=== PATIENT | male | born 1965 | race Hispanic/Latino ===

== ENCOUNTER 2020-07-12 18:17 | Emergency (ER) | payer SELFPAY ==
--- NOTE | 2020-07-12 18:42 | RAD REPORT ---
EXAM DESCRIPTION: CT - Ct Stroke Brain Wo Cont - 07/12/2020 6:33 pm CLINICAL HISTORY: Slurred speech COMPARISON: none TECHNIQUE: Computed axial tomography of the head was obtained. All CT scans are performed using dose optimization technique as appropriate and may include automated exposure control or mA/KV adjustment according to patient size. FINDINGS: A 2 centimeter bleed is present within the right internal capsule extending into the basal ganglia. There is no shift of the midline structures. 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 No extra-axial fluid collection is noted. Fluid within the sinuses/ mastoids is not seen. Mucus retention cyst is present within the right maxi llary sinus IMPRESSION: 2 centimeter bleed within the right internal capsule extending into the right basal gang joel Roberts of the emergency room was notified at 630 p.m. July 12, 2020
[2020-07-12 18:44] LABS: Absolute Lymphocytes (CBC) 1.7 K/uL (0.7-4.9); Basophils % 0.4 % (0-1.3); Hematocrit 39.2 % (39.6-49.0); Lymphocytes % 18.5 % (15.3-44.8); MPV 8.9 fL (7.6-11.3); RBC Red Blood Cell Count 4.58 M/uL (4.33-5.43)
[2020-07-12 18:46] LABS: Protime INR 0.98
--- NOTE | 2020-07-12 18:52 | EDPHYS ---
Physician Documentation [facility] Name: Quincy Farrell Age: 55 yrs Sex: Male : 1965 Arrival Date: 07/12/2020 Time: 18:19 Bed 8 Private MD: ED Physician Jude Roberts HPI: 07/12 18:34 This 55 yrs old Male presents to ER via Unassigned with complaints of S/S of magdalena Possible Stroke. 18:34 The patient's problem is reported as altered mental status, confused, decreased magdalena responsiveness. Onset: The symptoms/episode began/occurred 1 hour(s) ago. Duration: The episode is continuous. Context: the episode(s) was witnessed, by family, mother. The symptoms are alleviated by nothing. The symptoms are aggravated by nothing. Associated signs and symptoms: Pertinent positives: confusion, gait abnormality, headache, lightheadedness, nausea. Severity of symptoms: At their worst the symptoms were moderate in the emergency department the symptoms are unchanged. The patient has not experienced similar symptoms in the past. Historical: - Allergies: 19:01 No Known Allergies; sv - PMHx: 19:01 Diabetes - NIDDM; Hypertension; sv - PSHx: 19:01 Appendectomy; sv - Immunization history:: Adult Immunizations unknown. - Social history:: Smoking status: Patient denies any tobacco usage or history of. - Family history:: not pertinent. ROS: 18:34 Constitutional: Negative for fever, chills, and weight loss, Eyes: Negative for injury, magdalena pain, redness, and discharge, ENT: Negative for injury, pain, and discharge, Neck: Negative for injury, pain, and swelling, Cardiovascular: Negative for chest pain, palpitations, and edema, Respiratory: Negative for shortness of breath, cough, wheezing, and pleuritic chest pain, Abdomen/GI: Negative for abdominal pain, nausea, vomiting, diarrhea, and constipation, Back: Negative for injury and pain, : Negative for injury, bleeding, discharge, and swelling, MS/Extremity: Negative for injury and deformity, Psych: Negative for depression, anxiety, suicide ideation, homicidal ideation, and hallucinations, Allergy/Immunology: Negative for hives, rash, and allergies, Endocrine: Negative for neck swelling, polydipsia, polyuria, polyphagia, and marked weight changes. 18:34 Skin: Positive for diaphoresis. Exam: 18:34 Radiologist reports: 2 cm right bg bleed magdalena 18:34 Cardiovascular: Regular rate and rhythm with a normal S1 and S2. No gallops, murmurs, or rubs. Normal PMI, no JVD. No pulse deficits. Respiratory: Lungs have equal breath sounds bilaterally, clear to auscultation and percussion. No rales, rhonchi or wheezes noted. No increased work of breathing, no retractions or nasal flaring. Abdomen/GI: Soft, non-tender, with normal bowel sounds. No distension or tympany. No guarding or rebound. No evidence of tenderness throughout. Back: No spinal tenderness. No costovertebral tenderness. Full range of motion. MS/ Extremity: Pulses equal, no cyanosis. Neurovascular intact. Full, normal range of motion. 18:34 Neuro: Orientation: unable to test, Mentation: slow to respond, confused, Memory: unable to test, Cranial nerves: facial droop noted on left, with forehead spared. Motor: strength is 5/5 in the right arm and right leg, Strength is 3/5 in the left arm and left leg, Sensation: light touch is decreased in the left arm and left leg, Gait: not tested. seizure activity, is not displayed by the patient. 19:02 ECG was reviewed by the Attending Physician. [facility] Vital Signs: 18:33 BP 230 / 137; Pulse 87; Resp 26; Temp 97.5; Pulse Ox 97% on R/A; sv 19:05 BP 198 / 114; Pulse 97; Resp 29; Pulse Ox 96% on R/A; sv 19:16 Weight 108.86 kg; Height 5 ft. 5 in. (165.10 cm); rr5 19:20 BP 172 / 82; Pulse 86; Resp 20; Pulse Ox 99% on R/A; mg2 19:30 BP 179 / 104; Pulse 90; Resp 20; Pulse Ox 98% on R/A; mg2 19:33 BP 150 / 110; Pulse 89; Resp 18; Pulse Ox 97% on R/A; mg2 19:16 Body Mass Index 39.94 (108.86 kg, 165.10 cm) rr5 NIH Stroke Scale Scores: 18:19 NIHSS Score: 5 ss MDM: 18:[address] [facility] 18:43 Differential diagnosis: CVA, TIA, paralysis, metabolic disorder. Data reviewed: vital magdalena signs, nurses notes, lab test result(s), EKG, radiologic studies, CT scan, plain films. Data interpreted: quality assurance monitor body: rate is 75 beats/min, rhythm is regular, Pulse oximetry: on room air is 75 %. Test interpretation: by ED physician or midlevel provider: ECG, plain radiologic studies. Counseling: I had a detailed discussion with the patient and/or guardian regarding: the historical points, exam findings, and any diagnostic results supporting the discharge/admit diagnosis, the presence of at least one elevated blood pressure reading (>120/80) during this emergency department visit, lab results, the need to transfer to another facility, for higher level of care, [facility] does not immediately have the required specialist. 07/12 18:24 Order name: Basic Metabolic Panel [facility] 07/12 18:24 Order name: CBC with Diff; Complete Time: 19:17 [facility] 07/12 18:24 Order name: LFT's; Complete Time: 19:17 [facility] 07/12 18:24 Order name: Magnesium; Complete Time: 19:17 [facility] 07/12 18:24 Order name: NT PRO-BNP; Complete Time: 19:17 [facility] 07/12 18:24 Order name: PT-INR; Complete Time: 19:17 [facility] 07/12 18:24 Order name: Troponin (emerg Dept Use Only); Complete Time: 19:17 [facility] 07/12 18:24 Order name: XRAY Chest (1 view); Complete Time: 19:17 [facility] 07/12 18:24 Order name: CT Stroke Brain w/o Contrast; Complete Time: 19:17 [facility] 07/12 18:24 Order name: Sed Rate; Complete Time: 19:17 [facility] 07/12 18:24 Order name: CRP; Complete Time: 19:17 [facility] 07/12 18:24 Order name: Basic Metabolic Panel; Complete Time: 19:17 [facility]MA 07/12 19:01 Order name: Glucose, Ancillary Testing; Complete Time: 19:17 [facility] 07/12 18:24 Order name: EKG; Complete Time: 18:25 [facility] 07/12 18:24 Order name: Cardiac monitoring; Complete Time: 18:53 [facility] 07/12 18:24 Order name: EKG - Nurse/Tech; Complete Time: 18:53 [facility] 07/12 18:24 Order name: IV Saline Lock; Complete Time: 18:53 [facility] 07/12 18:24 Order name: Labs collected and sent; Complete Time: 18:53 [facility] 07/12 18:24 Order name: O2 Per Protocol; Complete Time: 18:53 [facility] 07/12 18:24 Order name: O2 Sat Monitoring; Complete Time: 18:53 [facility] 07/12 19:19 Order name: IV Saline Lock - Large Bore; Complete Time: 19:23 [facility] EC: Rate is 78 beats/min. Rhythm is regular. QRS [place] is Normal. [place] interval is normal. QRS magdalena interval is normal. QT interval is normal. No Q waves. T waves are Normal. No ST changes noted. Clinical impression: NSR w/ Non-specific ST/T Changes and No evidence of ischemia. Interpreted by me. Reviewed by me. Administered Medications: 18:25 CANCELLED (Duplicate Order): NS 0.9% 1000 ml IV at 1 bolus Per protocol; 1000 mL bolus magdalena 18:40 Drug: niCARdipine (25mg/250ml) 5 mg/hr Route: IV; Rate: per protocol; Site: right hand; sv 19:43 Follow up: Response: No adverse reaction; IV Status: Infusion continued upon transfer mg2 19:17 Drug: Zofran (Ondansetron) 4 mg Route: IVP; Site: left hand; mg2 19:40 Follow up: Response: No adverse reaction mg2 19:17 Drug: Trandate 20 mg Route: IVP; Site: left hand; mg2 19:40 Follow up: Response: No adverse reaction; Blood pressure is lowered mg2 19:20 Drug: foLIC Acid 1 mg Route: IVPB; Site: left hand; mg2 19:40 Follow up: Response: No adverse reaction; IV Status: Completed infusion mg2 19:20 Drug: Pepcid 20 mg Route: IVP; Site: left hand; mg2 19:43 Follow up: Response: No adverse reaction mg2 19:35 Drug: Trandate 20 mg Route: IVP; Site: left hand; mg2 19:43 Follow up: Response: No adverse reaction; Blood pressure is lowered; Medication mg2 administered at discharge. Disposition: 07/12/20 18:51 Transfer ordered to Other Acute Care Facility. 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 - Reason for transfer: Higher level of care. - Accepting physician is to neuro ICU. - Condition is Serious. - Problem is new. - Symptoms are unchanged. Critical care time excluding procedures: 19:18 Critical care time: Bedside Care: 35 minutes, Consultation: 10 minutes, Family magdalena Intervention: 10 minutes. Total time: 55 minutes NIH Stroke Scale - NIH Stroke Score Date: 07/12/2020 Time: 18:19 Total Score = 5 1a. Level of Consciousness (LOC) - 0(Alert) 1b. Level of Consciousness (LOC) (Year \T\ Age) - 0(Both) 1c. LOC Commands (Open \T\ Closes Eyes/Insurance Examiner) - 0(Both) 2. Best Gaze (Lateral Gaze Paresis) - 0(Normal) 3. Visual Field Loss - 0(No visual loss) 4. Facial Palsy - 2(Partial paralysis) 5a. Left Arm: Motor (10-second hold) - 1(Drift) 5b. Right Arm: Motor (10-second hold) - 0(No drift) 6a. Left Leg: Motor (5-second hold - always test supine) - 1(Drift) 6b. Right Leg: Motor (5-second hold - always test supine) - 0(No drift) 7. Limb Ataxia (finger/nose \T\ heel/deutsch - test with eyes open) - 0(Absent) 8. Sensory Loss (pinprick arms/legs/face) - 0(Normal) 9. Best Language: Aphasia (description/naming/reading) - 0(No aphasia) 10. Dysarthria (speech clarity - read or repeat words) - 1(Mild to Moderate) 11. Extinction and Inattention (visual/tactile/auditory/spatial/personal) - 0(No abnormality) Initials: ss Signatures: Dispatcher [employer] Marian Solis RN RN sv Anderson, Corey, MD MD cha Smirch, Shelby, RN RN Jean Marie Antunze RN RN mg2 Corrections: (The following items were deleted from the chart) 18:25 18:24 NS 0.9% 1000 ml IV at 1 bolus Per protocol; 1000 mL bolus ordered. magdalena nichols 19:43 18:51 07/12/2020 18:51 Transfer ordered to Other Acute Care Facility. 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 Reason for transfer: Higher level of care. Accepting physician is to neuro ICU. Condition is Serious. Problem is new. Symptoms are unchanged. magdalena
--- NOTE | 2020-07-12 18:52 | ER ---
Nurse's Notes [facility] Name: Quincy Farrell Age: 55 yrs Sex: Male : 1965 Arrival Date: 07/12/2020 Time: 18:19 Bed 8 Private MD: Diagnosis: Aphasia following nontraumatic intracerebral hemorrhage-LEFT SIDE HEMIPARESIS, APHASIA;Essential (primary) hypertension-HYPERTENSIVE CRISIS Presentation: 07/12 18:19 Chief complaint: Sister reports that approximately 1 hour patient started to not feel ss well and then fell from a standing position. Upon arrival to ED, it is noted that patient has L sided facial droop and L sided weakness as well as difficulty speaking. Coronavirus screen: Client denies travel out of the [place] in the last 14 days. Ebola Screen: Patient denies exposure to infectious person. Patient denies travel to an Ebola-affected area in the 21 days before illness onset. An acute neurological deficit is present. Pre-hospital glucose is not applicable to this patient. Initial Sepsis Screen: Does the patient meet any 2 criteria? No. Patient's initial sepsis screen is negative. Does the patient have a suspected source of infection? No. Patient's initial sepsis screen is negative. 18:19 Method Of Arrival: Wheelchair ss 18:19 Acuity: KATHRYN 1 ss 18:51 Risk Assessment: Do you want to hurt yourself or someone else? Patient reports no sv desire to harm self or others. Onset of symptoms was July 12, 2020. Triage Assessment: 19:00 The onset of the patients symptoms was July 12, 2020 at 17:30. General: Appears in mg2 no apparent distress. Behavior is. General: Behavior is calm, cooperative. 19:30 Neuro: Reports headache. mg2 Stroke Activation: Symptom onset < 3 hours Physician: Stroke Attending; Name: ; Notified At: ; Arrived At: Physician: Chief Stroke Resident; Name: ; Notified At: ; Arrived At: Physician: Stroke Resident; Name: ; Notified At: ; Arrived At: Physician: ED Attending; Name: Dr Roberts; Notified At: 18:19; Arrived At: 18:45 Physician: ED Resident; Name: ; Notified At: ; Arrived At: Historical: - Allergies: 19:01 No Known Allergies; sv - PMHx: 19:01 Diabetes - NIDDM; Hypertension; sv - PSHx: 19:01 Appendectomy; sv - Immunization history:: Adult Immunizations unknown. - Social history:: Smoking status: Patient denies any tobacco usage or history of. - Family history:: not pertinent. Screenin:50 Abuse screen: Denies threats or abuse. Denies injuries from another. Nutritional sv screening: No deficits noted. Tuberculosis screening: No symptoms or risk factors identified. 19:21 Fall Risk IV access (20 points). mg2 Assessment: 18:16 General: Appears uncomfortable. Pain: Denies pain. Neuro: Level of Consciousness is ss awake, alert, obeys commands, Oriented to person, place, time, Weakness in left arm(s) leg(s) Speech is slurred, Facial droop on left, Pupils are PERRLA, Denies headache. Respiratory: Airway is patent Respiratory effort is even, unlabored. EENT: Nares are clear Oral mucosa is moist. Derm: port wine stain birthmark noted to upper body/ face and hands. 18:19 VAN Scoring: Arm Drift: Minor drift Visual Disturbance: No visual disturbance noted. ss Aphasia: No aphasia noted. Neglect: No neglect noted. 18:50 Patient has been NPO before screening. The patient is alert, and able to follow sv commands. The patient exhibits slurred or garbled speech. Provider notified of the indication for Speech Therapy consult. The patient is not exhibiting difficulty speaking. The patient does not exhibit difficulty understanding words. The patient is able to swallow own secretions with no drooling or need for suction. The patient did not tolerate one teaspoon of water. Drooling, immediate coughing, gurgling, or clearing of the throat was noted. Bedside swallow screening discontinued. Patient kept NPO until cleared by Speech Therapy or Physician. The patient failed the bedside swallow screening. The patient will be kept NPO until cleared by Speech Therapy or Physician. Provider notified of bedside swallow screening results: Jude Roberts MD. 18:50 The patient did not tolerate 90mL of water. Drooling, immediate coughing, gurgling, or mg2 clearing of the throat was noted. 19:11 T-PA (Activase) Screening: Contraindications: Intracranial hemorrhage and its risk ss factor and suspicion of subarachnoid bleed:. 19:18 Reassessment: [facility] staff "daily" informed. rr5 19:41 Reassessment: report given to [facility] staff. patient blood mg2 pressure controlled, provider spoke to the family and patient. patient awake and alert x 4. left side weakness still noticeable with slurred speech but family said he is better compared to when he came in. Vital Signs: 18:33 BP 230 / 137; Pulse 87; Resp 26; Temp 97.5; Pulse Ox 97% on R/A; sv 19:05 BP 198 / 114; Pulse 97; Resp 29; Pulse Ox 96% on R/A; sv 19:16 Weight 108.86 kg; Height 5 ft. 5 in. (165.10 cm); rr5 19:20 BP 172 / 82; Pulse 86; Resp 20; Pulse Ox 99% on R/A; mg2 19:30 BP 179 / 104; Pulse 90; Resp 20; Pulse Ox 98% on R/A; mg2 19:33 BP 150 / 110; Pulse 89; Resp 18; Pulse Ox 97% on R/A; mg2 19:16 Body Mass Index 39.94 (108.86 kg, 165.10 cm) rr5 NIH Stroke Scale Scores: 18:19 NIHSS Score: 5 ss ED Course: 18:19 Patient arrived in ED. rg4 18:19 Arm band placed on right wrist. ss 18:21 Jude Roberts MD is Attending Physician. magdalena 18:29 initiated a transfer with Sahra from the [facility] [place]. eb 18:30 Inserted saline lock: 20 gauge in right hand, using aseptic technique. ,using aseptic sv technique. done by Mignon CLARK Blood collected. 18:33 CT Stroke Brain w/o Contrast In Process Unspecified. EDMS 18:35 Missed attempt(s): 20 gauge in left hand. Bleeding controlled, band aid applied, sv catheter tip intact. 18:36 transfer initiated with Lavelljocelyn Hernandezmanuel from the [facility] [place]. eb 18:42 EKG done, by ED staff, reviewed by Jude Roberts MD. sv 18:59 XRAY Chest (1 view) In Process Unspecified. EDMS 19:00 Patient has correct armband on for positive identification. overcaster on. Pulse mg2 ox on. NIBP on. Door closed. Warm blanket given. 19:01 Report given to Lucretia CLARK and Aditya CLARK. sv 19:05 Inserted saline lock: 22 gauge in left hand, using aseptic technique. ,using aseptic ss technique. Inserted by AMBER Hwang. 19:07 Triage completed. ss 19:10 Jean Marie Antunez, AMBER is Primary Nurse. mg2 19:43 No provider procedures requiring assistance completed. Patient transferred, IV remains mg2 in place. Administered Medications: 18:25 CANCELLED (Duplicate Order): NS 0.9% 1000 ml IV at 1 bolus Per protocol; 1000 mL bolus magdalena 18:40 Drug: niCARdipine (25mg/250ml) 5 mg/hr Route: IV; Rate: per protocol; Site: right hand; sv 19:43 Follow up: Response: No adverse reaction; IV Status: Infusion continued upon transfer mg2 19:17 Drug: Zofran (Ondansetron) 4 mg Route: IVP; Site: left hand; mg2 19:40 Follow up: Response: No adverse reaction mg2 19:17 Drug: Trandate 20 mg Route: IVP; Site: left hand; mg2 19:40 Follow up: Response: No adverse reaction; Blood pressure is lowered mg2 19:20 Drug: foLIC Acid 1 mg Route: IVPB; Site: left hand; mg2 19:40 Follow up: Response: No adverse reaction; IV Status: Completed infusion mg2 19:20 Drug: Pepcid 20 mg Route: IVP; Site: left hand; mg2 19:43 Follow up: Response: No adverse reaction mg2 19:35 Drug: Trandate 20 mg Route: IVP; Site: left hand; mg2 19:43 Follow up: Response: No adverse reaction; Blood pressure is lowered; Medication mg2 administered at discharge. Outcome: 18:51 ER care complete, transfer ordered by . [facility] 19:43 Transferred by ground EMS to [facility], Transfer form completed. mg2 19:43 Condition: stable 19:43 Instructed on the need for transfer, Demonstrated understanding of instructions. 19:43 Patient left the ED. mg2 NIH Stroke Scale - NIH Stroke Score Date: 07/12/2020 Time: 18:19 Total Score = 5 1a. Level of Consciousness (LOC) - 0(Alert) 1b. Level of Consciousness (LOC) (Year \\T\\ Age) - 0(Both) 1c. LOC Commands (Open \\T\\ Closes Eyes/Family Practice Physician Assistant) - 0(Both) 2. Best Gaze (Lateral Gaze Paresis) - 0(Normal) 3. Visual Field Loss - 0(No visual loss) 4. Facial Palsy - 2(Partial paralysis) 5a. Left Arm: Motor (10-second hold) - 1(Drift) 5b. Right Arm: Motor (10-second hold) - 0(No drift) 6a. Left Leg: Motor (5-second hold - always test supine) - 1(Drift) 6b. Right Leg: Motor (5-second hold - always test supine) - 0(No drift) 7. Limb Ataxia (finger/nose \\T\\ heel/deutsch - test with eyes open) - 0(Absent) 8. Sensory Loss (pinprick arms/legs/face) - 0(Normal) 9. Best Language: Aphasia (description/naming/reading) - 0(No aphasia) 10. Dysarthria (speech clarity - read or repeat words) - 1(Mild to Moderate) 11. Extinction and Inattention (visual/tactile/auditory/spatial/personal) - 0(No abnormality) Initials: Signatures: Dispatcher [employer] Marian Solis, Jude Garcia RN, MD MD cha Smirch, Shelby, RN RN ss Garcia, Rubi 4 Chiquis Tran 5 Lidia Gomez Michele, RN RN [facility] Aditya Tan RN RN rr5 Corrections: (The following items were deleted from the chart) 19:02 18:44 BP 230 / 137; Pulse 87bpm; Resp 26bpm; Pulse Ox 97% RA; Temp 97.5F; mh5 sv 19:12 18:50 Patient has been NPO before screening. The patient is alert, able to sv follow commands. The patient exhibits slurred or garbled speech. Provider notified of indication for Speech Therapy consult. The patient is exhibiting difficulty speaking. Provider notified of indication for Speech Therapy consult. The patient does not exhibit difficulty understanding words. The patient is able to swallow own secretions with no drooling or need for suction. The patient did not tolerate one teaspoon of water. Drooling, immediate coughing, gurgling, or clearing of the throat was noted. Bedside swallow screening discontinued. Patient kept NPO until cleared by Speech Therapy or Physician. The patient failed the bedside swallow screening. The patient will be kept NPO until cleared by Speech Therapy or Physician. sv
[2020-07-12] MEDS ORDERED: Nicardipine/NS 25 MG/250 ML KIT IV ONE (18:57)
[2020-07-12 19:04] LABS: ALT/SGPT 23 U/L (12-78); AST/SGOT 23 U/L (15-37); Albumin 3.8 g/dL (3.4-5.0); Alkaline Phosphatase 125 U/L (45-117); BUN Blood Urea Nitrogen 19 mg/dL (7-18); Bicarbonate 31 mmol/L (21-32); Bilirubin Direct 0.1 mg/dL (0-0.2); Bilirubin Total 0.3 mg/dL (0.2-1.0); C-Reactive Protein 9.35 mg/L (<3.00); Glucose Level 112 mg/dL (74-106); Magnesium 2.2 mg/dL (1.8-2.4); NT PRO-BNP 170 pg/mL (<125); Potassium 3.7 mmol/L (3.5-5.1); Protein, Total 8.3 g/dL (6.4-8.2); Sodium Level 141 mmol/L (136-145); Troponin (Emerg Dept Use Only) < 0.02 ng/mL (0.0-0.045)
--- NOTE | 2020-07-12 19:14 | RAD REPORT ---
EXAM DESCRIPTION: [place] Single View07/12/2020 6:59 pm CLINICAL HISTORY: Cough COMPARISON: 2018 FINDINGS: The lungs appear clear of acute infiltrate. The heart is mildly enlarged. Mediastinum is mildly more prominent than on the prior exam IMPRESSION: Mediastinum is mildly more prominent than on the prior exam. This probably is not signif icant. However, it is recommended that the patient have a PA and lateral chest series for further ev aluation when the patient's condition permits
[2020-07-12] MEDS ORDERED: LABETALOL 20 MG/4ML SYRINGE IV ONE ×2 (19:25→19:47)
[2020-07-12] MEDS ORDERED: ONDANSETRON 4 MG/2 ML VIAL ONE (19:25)
[2020-07-12] MEDS ORDERED: FAMOTIDINE 20 MG/2 ML VIAL IV ONE (19:34)
[2020-07-12] MEDS ORDERED: FOLIC ACID 5 MG/ML VIAL ONE (19:35)
[2020-07-12 20:40] VITALS: TEMP 97.5
[2020-07-12 20:44] VITALS: BP 150/110; O2SAT 97
--- NOTE | 2020-07-13 15:28 | EKG ---
Test Date: 2020-07-12 Test Time: 18:42:14 Plastic Card Grader Cardroom: JOHN MEASUREMENT RESULTS: Intervals: Rate: 78 MI: 154 QRSD: 78 QT: 370 QTc: 421 [place]: P: 59 MI: 154 QRS: 41 T: 120 INTERPRETIVE STATEMENTS: Normal sinus rhythm ST & T wave abnormality, consider lateral ischemia Abnormal ECG Compared to ECG 09/22/2017 19:11:18 ST (T wave) deviation now present Possible ischemia now present Left ventricular hypertrophy no longer present Myocardial infarct finding no longer present Electronically Signed On 07-13-20 15:26:28 CATCH BASIN CLEANER by Nadir Cooley
== END 2020-07-12 19:43 ==
LOC: ER 18:17
DX: I61.9 Nontraumatic intracerebral hemorrhage, unspecified (principal); R47.01 Aphasia; G81.94 Hemiplegia, unspecified affecting left nondominant side; I16.9 Hypertensive crisis, unspecified; I10 Essential (primary) hypertension; R29.705 NIHSS score 5
CPT/HCPCS: 36415; 70450; 71045; 80048; 80076; 82947; 83735; 83880; 84484; 85025; 85610; 85652; 86140; 93005; 99291; J2405